=== PATIENT | female | born 1970 | race Caucasian/White ===

== ENCOUNTER 2025-07-10 07:17 | Day surgery (SDC) | payer OTHER, SELFPAY ==
--- OUTSIDE RECORDS SUMMARY | 2025-06-12 12:57 | XMS_ITS | Patient Health Record ---
Author Organization [facility] Address [address] [place] [address] Care Team Providers Care Hardwood Floor Layer Name Role Phone Paolo Clayton MD Primary Care Provider Guerrero Holt [phone] Allergies Allergen (clinical drug ingredient) Drug/Non Drug Allergy documented on EMR Reaction Allergy Type Onset Date Status codeine Codeine Unknown Drug Allergy Active Reason For Referral No Information Medications Medication SIG (Take, Route, Frequency, Duration) Notes Start Date End Date Status Tylenol Extra Strength 500 MG 1 tablet a s needed Orally PRN Active One Daily For Women - as directed Orally Active Claritin 10 MG 1 tablet Orally Once a day for 30 day(s) Active Ibuprofen 800 MG Oral for 90 Days Active hydroCHLOROthiazide 25 MG Oral for 90 Days Active Sertraline HCl 100 MG TAKE 1 TABLET BY M OUTH EVERY DAY Oral for 90 Days Active traZODone HCl 100 MG TAKE 1 TABLET BY MO UTH EVERYDAY AT BEDTIME Oral for 90 Days Active Rosuvastatin Calcium 5 MG Oral for 90 Days Active Immunizations Vaccine Route Administration Date Status Comme nts Influenza Unknown 04/16/2020 Refused Social History AUDIT-C (Standard) Question Answer Notes Did you have a drink containing alcohol in the p ast year? No Points 0 Interpretation Negative Section Notes: nonsmoker; no sig alcohol nonsmoker; no sig alcohol nonsmoker; no sig alcohol Problems Problem Type SNOMED Code ICD Code Onset Dates Problem Status W/U Status Risk Notes Problem [id number] Encounter for screening for malignant neoplasm of colon (Z12.11) Active confirmed Problem 259581131891500 Preprocedural examination (Z01.818) Active confirmed Problem [id number] Family history o f colon cancer (Z80.0) Active confirmed Vital Signs Blood pressure diastolic 77 mm Hg 04/11/2025 Height 66.75 in 04/11/2025 Blood pressure systolic 111 mm Hg 04/11/2025 Weight 332 lbs 04/11/2025 BMI 52.38 kg/m2 04/11/2025 Procedures Procedure Date Ordered Date Performed Result Body Sit e COLONOSCOPY 04/11/2025 N/A Encounters Encounter Location Date Provider Diagnosis [facility] [address] [place] [address] 04/11/2025 Guerrero Bolanos Encounter for screen ing for malignant neoplasm of colon Z12.11 ; Preprocedural examination Z01.818 and Family history of colon cancer Z80.0 Assessments Encounter Date Diagnosis (ICD Code) Assessment Notes Treatment Notes Treatment Clinical Notes Section Notes 04/11/2025 Encounter for screening for malignant neoplasm of colon (ICD-10 - Z12.11) Overall, Cruz appears quite well. Given her significant family history and her last colonoscopy being 5 years ago, I did recommend a follow-up colonoscopy for further screening purposes. We did review the rationale for this in regard to colon cancer prevention. Full consent has been obtained for this, including risks of bleeding and perforation. The procedure will be done with monitored anesthesia care. She was given the below instructions regarding adjustment of her medication for the procedure. Cruz was comfortable with this plan. Thank you again for allowing me to participate in Cruz's care. I shall continue to keep you advised of her progress. 04/11/2025 Preprocedural examination (ICD-10 - Z01.818) Overall, Cruz appears quite well. Given her significant family history and her last colonoscopy being 5 years ago, I did recommend a follow-up colonoscopy for further screening purposes. We did review the rationale for this in regard to colon cancer prevention. Full consent has been obtained for this, including risks of bleeding and perforation. The procedure will be done with monitored anesthesia care. She was given the below instructions regarding adjustment of her medication for the procedure. Cruz was comfortable with this plan. Thank you again for allowing me to participate in Cruz's care. I shall continue to keep you advised of her progress. 04/11/2025 Family history of colon cancer (ICD-10 - Z80.0) Overall, Cruz appears quite well. Given her significant family history and her last colonoscopy being 5 years ago, I did recommend a follow-up colonoscopy for further screening purposes. We did review the rationale for this in regard to colon cancer prevention. Full consent has been obtained for this, including risks of bleeding and perforation. The procedure will be done with monitored anesthesia care. She was given the below instructions regarding adjustment of her medication for the procedure. Cruz was comfortable with this plan. Thank you again for allowing me to participate in Cruz's care. I shall continue to keep you advised of her progress. Plan Of Treatment Pending Test Test Name Order Date COLONOSCOPY 04/11/2025 Future Test Test Name Order Date COLONOSCOPY 12/18/2014 COLONOSCOPY 04/16/2020 Next Appt Details Provider Name:Guerrero Bolanos , 07/10/2025 08:30:00 AM, [address] [place] [address] , [place], [place], [phone], Insurance Providers Payer Name Payer Address Payer Phone Subscriber Number Group Number Insured Name Patient Relationship to Insured Coverage Start Date Coverage End Date [facility] [address] [place] [phone] [id number] CRZU SOOD Self - patient is the insured 3 Medical (General) History Medical History History ICD Code Screening colonoscopy, 2009-- hyperplast ic polyp only Denies MD,DM,CVA,Lung disease,renal dise ase Hx of Anxiety Neg. screening colonoscopy in 02/2015 Colonoscopy 03/2020 neg except for hyperp lastic polyps Edema Hyperlipidemia Surgical History Surgery Date(Month/Year) Gastric sleeve-Dr. Mueller--400_# down to 300_# as of 03/2020 Shoulder surgery Gastric Lap [id number]. Ha ag--lost 100 _#, but gained 50 _# back--the band is now deflated Back surgery
[2025-07-08 14:28] VITALS: BMI 52.4
--- NOTE | 2025-07-09 08:42 | HO.ANESPROP2 ---
Documented by User: Rosalba Reeder NP 07/09/25 08:43 HPI - Anesthesia Eval Consult details Narrative: 55yo F for Colonoscopy BMI 52 PMFSH Past Medical History Medical History Severe obesity (BMI >= 40) Hyperlipidemia Anxiety Surgical History Surgical History History of sleeve gastrectomy Hx of shoulder surgery Hx of laparoscopic gastric banding Hx of section History of back surgery H/O colonoscopy Social History Social History Are you a primary inpatient care manager rn to a significant other at home: No Do you presently have visiting nurse or other home services: No Patient Tobacco Use Status: Never used Tobacco Have you been hit, kicked, punched, or otherwise hurt by someone within the past year? If so, by whom?: No Are you DNR?: No Advance Directives: No Advance Directives Information Provided: Yes Poor oral hygiene: No Meds Allergies Allergy/AdvReac Type Severity Reaction Status Date / Time adhesive tape (ADHESIVE TAPE) Allergy Unknown RASH Verified 07/10/25 07:36 codeine AdvReac Vomiting Verified 07/10/25 07:58 Home Medications ?Medication ?Instructions ?Recorded ?Confirmed ?Last Taken ?Type hydrochlorothiazide 25 mg tablet 25 mg PO DAILY 07/08/25 07/08/25 Unknown History ibuprofen 800 mg tablet 800 mg PO DAILY 07/08/25 07/08/25 06/26/25 History loratadine 10 mg tablet (Claritin) 10 mg PO DAILY 07/08/25 07/08/25 Unknown History multivitamin 1 tab PO DAILY 07/08/25 07/08/25 Unknown History rosuvastatin 5 mg tablet 5 mg PO DAILY 07/08/25 07/08/25 Unknown History sertraline 100 mg tablet 100 mg PO DAILY 07/08/25 07/08/25 Unknown History trazodone 100 mg tablet 100 mg PO BEDTIME 07/08/25 07/08/25 Unknown History Exam Height,Weight and Vital Signs: Height 5 ft 6.75 in Weight 150.593 kg Assessment and Plan Assessment Anesthesia Assessment: Chart Reviewed Documented by User: Hal Crowe MD 07/10/25 08:38 PMF Past Medical History Medical History Severe obesity (BMI >= 40) Hyperlipidemia Anxiety Family History Family history of problems with anesthesia: No Surgical History Surgical History History of sleeve gastrectomy Hx of shoulder surgery Hx of laparoscopic gastric banding Hx of section History of back surgery H/O colonoscopy History of Problems with Anesthesia: No Social History Social History Are you a primary inpatient care manager rn to a significant other at home: No Do you presently have visiting nurse or other home services: No Patient Tobacco Use Status: Never used Tobacco Have you been hit, kicked, punched, or otherwise hurt by someone within the past year? If so, by whom?: No Are you DNR?: No Advance Directives: No Advance Directives Information Provided: Yes Poor oral hygiene: No Meds Allergies Allergy/AdvReac Type Severity Reaction Status Date / Time adhesive tape (ADHESIVE TAPE) Allergy Unknown RASH Verified 07/10/25 07:36 codeine AdvReac Vomiting Verified 07/10/25 07:58 Home Medications ?Medication ?Instructions ?Recorded ?Confirmed ?Last Taken ?Type hydrochlorothiazide 25 mg tablet 25 mg PO DAILY 07/08/25 07/08/25 Unknown History ibuprofen 800 mg tablet 800 mg PO DAILY 07/08/25 07/08/25 06/26/25 History loratadine 10 mg tablet (Claritin) 10 mg PO DAILY 07/08/25 07/08/25 Unknown History multivitamin 1 tab PO DAILY 07/08/25 07/08/25 Unknown History rosuvastatin 5 mg tablet 5 mg PO DAILY 07/08/25 07/08/25 Unknown History sertraline 100 mg tablet 100 mg PO DAILY 07/08/25 07/08/25 Unknown History trazodone 100 mg tablet 100 mg PO BEDTIME 07/08/25 07/08/25 Unknown History Exam Exam Date and Time: 07/10/2025 Airway Mallampati Class: II TM Dist: >3cm Loose/Missing/Broken Teeth: No Heart: rrr Lungs: cta Other: normal Assessment and Plan Final Anesthetic Review Family History of Problems with Anesthesia: No History of Problems with Anesthesia: No NPO: Yes ASA Class: II Final Preanesthetic Review: No Changes in Pt Med Stat, Meds/Allgs Chart Reviewed, Consent Obtained/Reviewed and Anes Risks/Benef Reviewed Patient Risk: Low Procedure Risk: Low Anesthetic Plan Anesthetic Plan: MAC: Disposition: Standard PACU
[2025-07-10 07:31] VITALS: BMI 53.2
[2025-07-10] MEDS: Lactated Ringers 1,000 ML 100 ML IVCONT (07:38)
[2025-07-10 07:55] VITALS: BP 142/72; PULSE 76; RESP 18; TEMP 36.7; O2SAT 96
--- NOTE | 2025-07-10 09:52 | PM.OP ---
Brief Operative Note Date of Service: 07/10/25 Pre-op diagnosis: Screening Post-op diagnosis: other (Polyps) Procedure: Colonoscopy to the cecum and TI with cold snare polypectomy(AC polyp) and hot snare polypectomy(cecal polyp) Surgeon: Guerrero Bolanos MD Anesthesia: MAC Was an Sports Announcer used for this Procedure?: No Estimated blood loss (mL): 2.0 Pathology: other (A. Ascending colon polyp B. Cecal polyp) Condition: stable Disposition: PACU
[2025-07-10 09:53] VITALS: BP 130/70; PULSE 57; RESP 18; TEMP 36.5; O2SAT 99
[2025-07-10 10:08] VITALS: BP 139/71; PULSE 59; RESP 18; TEMP 36.1; O2SAT 100
--- NOTE | 2025-07-10 10:59 | OP_ITS ---
DATE OF SERVICE: 07/10/2025 SURGEON: Guerrero Bolanos MD INDICATIONS: The patient presents for evaluation of colorectal cancer screening in regard to family history of colon cancer. Full consent has been obtained from her for this, including risks of bleeding and perforation. PREOPERATIVE DIAGNOSIS: POSTOPERATIVE DIAGNOSIS: PROCEDURE PERFORMED: Colonoscopy to the cecum and terminal ileum with cold snare polypectomy and hot snare polypectomy. ESTIMATED BLOOD LOSS: COMPLICATIONS: ANESTHESIA: Medication used, monitored anesthesia care. ASSISTANTS: SPECIMENS: PREOPERATIVE DIAGNOSES: Colorectal cancer screening and family history of colon cancer. POSTOPERATIVE DIAGNOSES: Colorectal cancer screening and family history of colon cancer, colon polyps, internal hemorrhoids. DESCRIPTION OF PROCEDURE: The patient was placed in the left lateral decubitus position. The digital rectal exam revealed no abnormalities. The Olympus video pediatric colonoscope was entered into the rectum and advanced to the cecum with the assistance of abdominal pressure. Once in the cecum, I did identify cecal pouch with appendiceal orifice. The terminal ileum was cannulated. The terminal ileum appeared normal. The scope was withdrawn back in the colon. The entire cecum was well visualized. In the cecum was an approximately 15 mm flat, but raised possibly serrated polyp. This was removed in piecemeal fashion. One piece was recovered by suction. The other piece had to be recovered by withdrawing it on the tip of the scope. The scope was the readvanced back to the polypectomy site, which appeared clean, without any sign of residual polyp nor bleeding. The remainder of the cecum appeared normal. The scope was then slowly withdrawn assessing all mucosal surfaces carefully. Preparation was excellent. In the proximal ascending colon was an approximately 5 mm polyp, which was removed by cold snare poly[pectomy and recovered by suction. The polypectomy site appeared clean, without any sign of residual polyp nor significant bleeding. I did not visualize any other polyps, colitis, nor angiodysplasia. There was a mild amount of sigmoid diverticulosis. In the rectum, scope was retroflexed visualizing internal hemorrhoids, but no other pathology. The rectal mucosa appeared normal. The scope was straightened and withdrawn from the patient. She tolerated the procedure well and was returned to the recovery area in stable condition. IMPRESSION: 1. Colon polyps. 2. Diverticulosis. 3. Internal hemorrhoids. PLAN: The results of the pathology will be checked. She was advised not to use any aspirin or NSAIDs for 1 week,. The timing of her next colonoscopy would depend on what type of polyp these are, particularly the larger polyp. If the larger polyp is a serrated polyp, I would recommend a repeat colonoscopy within 1 year. I will be in touch with her as to the results. This has been discussed with her . MD JAVON Rodriguez/EMMA / [id number] MTDD
== END 2025-07-10 10:26 | disposition home or self-care (01) ==
PROVIDERS: PCP Internal Medicine; Visit Provider Internal Medicine
PROC: 0DJD8ZZ Inspection of Lower Intestinal Tract, Via Natural or Artificial Opening Endoscopic (ICD-10-PCS; CPT 45378; principal; 2025-07-10 08:30)
DX: Z12.11 Encounter for screening for malignant neoplasm of colon (principal); D12.0 Benign neoplasm of cecum; D12.2 Benign neoplasm of ascending colon; K57.30 Diverticulosis of large intestine without perforation or abscess without bleeding; K64.8 Other hemorrhoids; Z80.0 Family history of malignant neoplasm of digestive organs; E78.5 Hyperlipidemia, unspecified; E66.01 Morbid (severe) obesity due to excess calories; Z68.43 Body mass index [BMI] 50.0-59.9, adult; Z79.02 Long term (current) use of antithrombotics/antiplatelets; Z79.899 Other long term (current) drug therapy
CPT/HCPCS: 45385; 88305; J2003; J2704; J3010